=== PATIENT | female | born 1990 | race American Indian/Alaskan Native ===

== ENCOUNTER 2019-05-05 10:21 | Emergency (ER) | payer OTHER, SELFPAY ==
[2019-05-05 10:24] VITALS: BP 120/82; PULSE 78; RESP 12; TEMP 36.6; O2SAT 100
--- NOTE | 2019-05-05 11:04 | ED.GENADULT ---
HPI - General Adult General Chief complaint: Ear Stated complaint: Rt ear bleeding, not able to hear out of it Time Seen by Provider: 05/05/19 10:48 Source: patient Mode of arrival: Ambulatory Limitations: no limitations History of Present Illness HPI narrative: 28-year-old female here for evaluation of blood coming from her right ear in a muffled voice and a right ear. She denies any sinus congestion. She states that her son was recently diagnosed with RSV. She denies any fevers or sore throat. States that yesterday she noticed pain in her right ear. The pain then suddenly got worse and then she noticed some fluid coming from her ear. She was putting all of oil in her ear and she thought that maybe that was the fluid that was coming out however she then used a Q-tip and noticed it was blood. Has never had anything like this in the past. Related Data Previous Rx's Medication Instructions Recorded azithromycin See Rx Instructions .ROUTE 05/05/19 .COMPLEX #6 tab fluticasone propionate [Flonase 1 spray NASAL DAILY PRN #18.2 ml 05/05/19 Allergy Relief] loratadine [Claritin] 10 mg PO DAILY PRN #30 tab 05/05/19 Review of Systems Constitutional Constitutional: Denies fever(s) ENT Ears, Nose, Mouth, and Throat: Denies neck pain, Denies sinus pressure, Denies sore throat and Denies throat swelling Comments: Multiple old sounds right ear, blood coming from ID Cardiovascular Cardiovascular: Denies chest pain Respiratory Respiratory: Denies cough Musculoskeletal Musculoskeletal: Denies neck pain Integumentary/Breasts Skin/Breast: Denies lesions and Denies rash Hematologic/Lymphatic Hematologic/Lymphatic: Denies easy bleeding and Denies easy bruising Allergic/Immunologic Allergic/Immunologic: Denies throat swelling Patient History Medical History Patient denies medical problems (Acute) Social History lives independently: Yes Exam Initial Vital Signs Initial Vital Signs: Vital Signs Temperature 97.9 F 05/05/19 10:24 Pulse Rate 78 05/05/19 10:24 Respiratory Rate 12 05/05/19 10:24 Blood Pressure 120/82 05/05/19 10:24 Pulse Oximetry 100 05/05/19 10:24 Const General: cooperative and comfortable Orientation: alert and awake HENCA Ears: TM normal on the left, EAC's normal, mastoid abnormal and TM abnormal bulging on the right, bullous on the right, dull on the right, with fluid behind the TM on the right and perforated with bloody discharge on the right; not erythematous Resp Effort & Inspection: normal respiratory effort Skin Lesions: no lesions Rashes: no rashes Neuro General: alert and awake Cognition: normal cognition Speech: speech normal Extrem General: normal to inspection and capillary refill normal Course Vital Signs Vital signs: Vital Signs - 8 hr 05/05/19 10:24 Temperature 97.9 F Pulse Rate 78 Respiratory Rate 12 Blood Pressure 120/82 Pulse Oximetry 100 Medical Decision Making MDM Narrative Medical decision making narrative: Patient's left tympanic membrane is unremarkable. The right tympanic membrane is bulging, is not erythematous. I do not see a specific perforation however given her history and physical exam I do suspect that this is what occurred earlier today. She has been exposed to RSV and other upper respiratory infections. Will send home with a prescription for Claritin and Flonase. Asked her to take these for the next couple days and then if her symptoms did not improve she does start the antibiotics she was given a prescription for. Informed her she should contact her primary provider for follow-up. She expressed understanding and agreement with plan. Discharge Plan Departure Patient Disposition: Home Clinical Impression: Rupture of right tympanic membrane Otitis media Qualifiers: Otitis media type: serous Chronicity: acute Laterality: right Recurrence: not specified as recurrent Qualified Code(s): H65.01 - Acute serous otitis media, right ear Instructions: Middle Ear Infection, DI for Tympanic Membrane Perforation-Adult Activity Restrictions/Additional Instructions: Take the medications as directed. I do recommend you talk with your medical department for follow-up either later this week or the beginning of next week. Return to the emergency department for any new or worsening symptoms Prescriptions: New loratadine [Claritin] 10 mg tablet 10 mg PO DAILY PRN (Reason: allergy symptoms) Qty: 30 RF: 0 fluticasone propionate [Flonase Allergy Relief] 50 mcg/actuation spray,suspension 1 spray NASAL DAILY PRN (Reason: congestion) Qty: 18.2 RF: 0 azithromycin 250 mg tablet See Rx Instructions .ROUTE .COMPLEX Qty: 6 RF: 0
== END 2019-05-05 11:24 | disposition home or self-care (01) ==
PROVIDERS: Emergency Provider Emergency Medicine
DX: H65.01 Acute serous otitis media, right ear (principal)
CPT/HCPCS: 99282

== ENCOUNTER 2019-05-25 13:32 | Day surgery (SDC) | payer OTHER, SELFPAY ==
[2019-05-22 11:37] VITALS: BMI 26.9
[2019-05-25] VITALS (9 sets, daily range): BP systolic 116–142; BP diastolic 68–82; PULSE 54–100; RESP 14–22; TEMP 36.3–37.1; O2SAT 98–100; BMI 26.5
--- NOTE | 2019-05-25 | PATH_ITS ---
[facility] Accession Number: [id number] . 01 Material submitted: . gallbladder - GALLBLADDER . 02 Diagnosis: Gallbladder, Cholecystectomy: Chronic cholecystitis with cholelithiasis. No evidence of dysplasia or malignancy. MRV 05/28/2019 1055 Local . 02 Electronically signed: . Sarah Matias MD, Pathologist NPI- [id number] . 01 Gross description: . Received in formalin, labeled gallbladder, is an intact gallbladder (length-6.1 cm, diameter-2.7 cm) with olivo-purple smooth shiny serosa and a patent cystic duct. No lymph nodes are identified. The lumen contains green viscous bile and multiple yellow friable calculi (1.2 x 0.5 x 0.3 cm in aggregate. The mucosa is louis, smooth and flat. The wall is up to 0.1 cm thick. No nodules, masses or lesions are identified. Section code: (A1) cystic duct resection margin and two serial sections from the body; (A2) two longitudinal sections from the fundus. ([id number]) /MRV 05/26/2019 1409 Local . 02 Pathologist provided ICD-10: K80.60 . 02 CPT . 552022 Performed at: 01 [facility] [address], [place], [place] [id number] MD Peter Oswald MD Phone: [phone] Performed at: 02 [facility] [address] [place], [place] [id number] MD Sarah Matias MD Phone: [phone]
[2019-05-25] MEDS: LACTATED RINGERS 1,000 ML 100 ML IV ×2 (13:59→16:02)
--- NOTE | 2019-05-25 14:22 | PM.PREOP ---
Pre-operative Note Interval Note History & Physical reviewed/Exam performed by Physician: Yes Changes to H&P: No
[2019-05-25] MEDS: CLINDAMYCIN 900 MG/50 ML PIGGYBACK 50 MG IV (14:48)
--- NOTE | 2019-05-25 15:13 | SUR.OPER ---
Supine on padded OR bed, head on pillow, arms secured on padded arm boards at <90 degrees abduction, legs uncrossed, safety belt at thigh,footboard secured to OR table to stabilize feet, tape over blanket over lower legs.
[2019-05-25] MEDS: BUPIVACAINE 0.25% (PF) VIAL 30 ML INJ (15:30)
--- NOTE | 2019-05-25 15:56 | PM.OP.1 ---
Operative Date/Time/Diagnoses Date of procedure: 05/25/19 Time of procedure: 15:56 Pre-op diagnosis: Biliary colic Post-op diagnosis: same Procedure & Clinicians Procedure: Laparoscopic cholecystectomy Same procedure as scheduled: Yes Indications: 28-year-old female with biliary colic and ultrasound demonstrating gallstones presents for elective cholecystectomy. Surgeon: Bg Dos Santos Click Yes if Unassisted: Yes Anesthesia Type: General Operative Notes Findings: No evidence of acute cholecystitis Specimen(s): other Estimated Blood Loss (mL): 10 Procedure in detail: The patient was brought to the operating room placed supine on the table. Bilateral lower extremity compression devices were applied. General anesthesia was induced and they were intubated with an endotracheal tube. They received 900 mg of clindamycin prior to skin incision. A time-out was performed to ensure the correct patient procedure necessary equipment within the operating room. They were then prepped and draped in the usual sterile fashion. Infraumbilical incision was made the umbilical stalk was grasped and elevated and the fascia was sharply incised. The abdomen was entered atraumatically. A 10 mm trocar was then placed into the abdomen. Pneumoperitoneum was established. The laparoscopic camera was inserted into the abdomen inspection was made that demonstrated no evidence of injury upon entry. We then placed our working ports the 1st 5 mm port high in the epigastrium and then 2 in the right upper quadrant. The gallbladder was grasped and retracted over the liver and grasped laterally by the fundus. There is no evidence of acute cholecystitis. The triangle of Calot was exposed. The triangle of calot was then skeletonized using hook electrocautery and demonstrated the cystic duct clearly entering the gallbladder the cystic artery and the liver and in the background. With the critical view of safety established the cystic duct was clipped twice proximally and once distally and then sharply divided and the cystic artery was taken in the same fashion. Next the gallbladder was removed from the liver bed using electro cautery. The liver bed was then inspected for hemostasis and this was achieved. The abdomen was irrigated with sterile saline and inspection was made that showed the clips in good position. The specimen was removed using Endo-Catch. The abdomen was desufflated. The the fascia of the umbilicus was closed with 0 Vicryl in a [id number] fashion. Skin incisions were irrigated and closed with 4-0 Monocryl. The wounds were sealed with Dermabond. Patient emerged from general anesthesia was extubated and transferred to the postoperative care unit missed stable condition. The sponge and instrument count at the end of the operation was correct. Complications: none Post-operative Condition: stable Disposition: same day surgery
[2019-05-25] MEDS: fentaNYL 100 MCG/2 ML INJ IV ×2 (16:08→16:13)
--- NOTE | 2019-05-25 16:22 | SUR.PHASEI ---
Patient resting quietly and rates pain 4/10 now. Dressings to abdomen x 4 remain clean, dry and intact. Ice chips offered. Patient declined at this time.
--- NOTE | 2019-05-25 16:34 | SUR.PHASEI ---
Porfirio crackers and cranberry juice provided.
[2019-05-25] MEDS: OXYCODONE/ACETAMINOPHEN 5/325 TABLET 1 TAB PO (16:55)
[2019-05-25] MEDS: ONDANSETRON 4 MG/2 ML INJ IV (16:55)
--- NOTE | 2019-05-25 17:04 | SUR.PHASEII ---
Patient resting quietly with partner at bedside. All discharge instructions and prescription given to patient and partner. All belongings returned to patient. Rx for oxycodone provided to patient. Advised patient to eat a light diet this evening. V/U.
== END 2019-05-25 17:23 | disposition home or self-care (01) ==
PROVIDERS: PCP Family Medicine; Visit Provider Surgery
PROC: 0FT44ZZ Resection of Gallbladder, Percutaneous Endoscopic Approach (ICD-10-PCS; CPT 47562; principal; 2019-05-25 14:45)
DX: K80.10 Calculus of gallbladder with chronic cholecystitis without obstruction (principal)
CPT/HCPCS: 47562; J1100; J1885; J2250; J2405; J2704; J3010